=== PATIENT | female | born 1980 | race Caucasian/White ===

== ENCOUNTER 2016-08-21 02:06 | Emergency (ER) | payer MEDICAID ==
[~2016-08-21] VITALS: Ht 152.4 cm; Wt 60.9 kg
[~2016-08-21 02:06] MED LIST: CIPR500T4 PO; HYDR-3498 PO; MECL25TA2 PO; PHEN-538 PO
[2016-08-21 02:10] VITALS: Ht 152.4 cm; Wt 60.9 kg
[2016-08-21 03:45] LABS: ADD SCAN DIFF NO
[2016-08-21 03:47] LABS: BASOPHIL # 0.1 10^3/ul (0.0-0.1); BASOPHILS % 0.5 % (0.0-2.0); EOSINOPHILS # 0.3 10^3/ul (0.0-0.5); EOSINOPHILS % 2.7 % (0.0-7.0); HEMATOCRIT 32.5 % (37.0-47.0); HEMOGLOBIN 11.1 g/dl (12.0-16.0); LYMPHOCYTES # 3.2 10^3/ul (0.8-2.9); LYMPHOCYTES % 32.2 % (15.0-51.0); MEAN CORPUSCULAR HEMOGLOBIN 30.7 pg (29.0-33.0); MEAN CORPUSCULAR HGB CONC 34.2 g/dl (32.0-37.0); MEAN PLATELET VOLUME 9.9 fl (7.4-10.4); MONOCYTE # 0.6 10^3/ul (0.3-0.9); MONOCYTES % 6.3 % (0.0-11.0); NEUTROPHIL # 5.7 10^3/ul (1.6-7.5); PLATELET COUNT 298 10^3/UL (140-415); RED BLOOD COUNT 3.61 10^6/ul (4.20-5.40); RED CELL DISTRIBUTION WIDTH 13.6 % (11.5-14.5); WHITE BLOOD COUNT 9.8 10^3/ul (4.8-10.8)
[2016-08-21 03:53] LABS: ADD UMIC YES; URINE BILIRUBIN (Dip) NEGATIVE (NEGATIVE); URINE BLOOD (Dip) 3+ (NEGATIVE); URINE COLOR LT. YELLOW (YELLOW); URINE GLUCOSE (Dip) NEGATIVE (NEGATIVE); URINE KETONES (Dip) NEGATIVE (NEGATIVE); URINE LEUKOCYTE ESTERASE (Dip) NEGATIVE (NEGATIVE); URINE NITRITE (Dip) NEGATIVE (NEGATIVE); URINE TOTAL PROTEIN (Dip) 2+ (NEGATIVE); URINE UROBILINOGEN (Dip) 0.2 E.U./dL (0.1-1.0)
--- NOTE | 2016-08-21 03:57 | ERD ---
ER Documentation Chief Complaint Date/Time DATE: 08/21/16 TIME: 03:57 Chief Complaint VAG BLEEDING 15 WEEKS C/O LOWER ABD PAIN AND CRAMPING. HPI 36-year-old female presents in emergency department for complaints of pelvic pain and vaginal bleeding started tonight. Patient states that she started to have vaginal bleeding, heavy bleeding, passing of clots. Patient is approximately 15 weeks . 5 para 3 1. Patient is complaining of pelvic pain and cramping pain 4/and scale, accompanying the vaginal bleeding. Patient denies hematuria or dysuria. Patient denies any flank pain. Patient denies any nausea vomiting. Patient denies any fever or chills. ROS All systems reviewed and are negative except as per history of present illness. Medications Home Meds Active Scripts Hydrocodone Bit-Acetaminophen* ([place]*) 5-325 Mg Tab, 1 TAB PO Q6 Y for PAIN, # 20 TAB Prov:RL ARROYO NP 09/19/15 Phenazopyridine Hcl* (Pyridium*) 200 Mg Tab, 200 MG PO TID Y for URINARY PAIN, # 6 TAB Prov:RL ARROYO NP 09/19/15 Ciprofloxacin Hcl* (Ciprofloxacin Hcl*) 500 Mg Tablet, 500 MG PO BID for 10 Days , TAB Prov:RL ARROYO NP 09/19/15 Meclizine Hcl* (Antivert*) 25 Mg Tablet, 25 MG PO Q8H Y for dizziness, #14 TAB Prov:JOSE ALBERTO RIVERO PA-C 04/09/15 Hydrocodone Bit-Acetaminophen* ([place]*) 5-325 Mg Tab, 1 TAB PO Q6 Y for PAIN, # 10 TAB Prov:JOSE ALBERTO RIVERO PA-C 04/09/15 Allergies Allergies: Coded Allergies: No Known Allergy (Unverified , 04/09/15) PMhx/Soc Medical and Surgical Hx: pt denies Medical Hx, pt denies Surgical Hx History of Surgery: No Anesthesia Reaction: No Hx Neurological Disorder: No Hx Respiratory Disorders: No Hx Cardiac Disorders: No Hx Psychiatric Problems: No Hx Miscellaneous Medical Probl: No Hx Alcohol Use: No Hx Substance Use: No Hx Tobacco Use: No Smoking Status: Never smoker FmHx Family History: No coronary disease, No diabetes, No other Physical Exam Vitals Vital Signs Date Time Temp Pulse Resp B/P Pulse Ox O2 Delivery O2 Flow Rate FiO2 08/21/16 02:10 97.8 88 20 118/61 100 Physical Exam GENERAL: The patient is well developed and appropriate for usual state of health, in no apparent distress. CHEST: Clear to auscultation bilaterally. There are no rales, wheezes or rhonchi. HEART: Regular rate and rhythm. No murmurs, clicks, rubs or gallops. No S3 or S4. ABDOMEN: Soft, nontender and nondistended. Good bowel sounds. No rebound or guarding. No gross peritonitis. No gross organomegaly or masses. No Bangura sign or McBurney point tenderness. BACK: No midline or flank tenderness. EXTREMITIES: Equal pulses bilaterally. There is no peripheral clubbing, cyanosis or edema. No focal swelling or erythema. Full range of motion. Grossly neurovascularly intact. NEURO: Alert and oriented. Cranial nerves 2-12 intact. Motor strength in all 4 extremities with 5/5 strength. Sensation grossly intact. Normal speech and gait. SKIN: There is no apparent rash or petechia. The skin is warm and dry. HEMATOLOGIC AND LYMPHATIC: There is no evidence of excessive bruising or lymphedema. No gross cervical, axillary, or inguinal lymphadenopathy. Result Diagram: 08/21/16 0310 08/21/16 031 Results 24 hrs Laboratory Tests Test 08/21/16 03:10 08/21/16 03:23 White Blood Count 9.810^3/ul Red Blood Count 3.6110^6/ul Hemoglobin 11.1g/dl Hematocrit 32.5% Mean Corpuscular Volume 90.0fl Mean Corpuscular Hemoglobin 30.7pg Mean Corpuscular Hemoglobin Concent 34.2g/dl Red Cell Distribution Width 13.6% Platelet Count 65911^3/UL Mean Platelet Volume 9.9fl Neutrophils % 58.0% Lymphocytes % 32.2% Monocytes % 6.3% Eosinophils % 2.7% Basophils % 0.5% Nucleated Red Blood Cells % 0.0/100WBC Neutrophils # 5.710^3/ul Lymphocytes # 3.210^3/ul Monocytes # 0.610^3/ul Eosinophils # 0.310^3/ul Basophils # 0.110^3/ul Nucleated Red Blood Cells # 0.010^3/ul Sodium Level 138mmol/L Potassium Level 3.4mmol/L Chloride Level 104mmol/L Carbon Dioxide Level 22mmol/L Anion Gap 15 Blood Urea Nitrogen 8mg/dl Creatinine 0.37mg/dl Glucose Level 103mg/dl Calcium Level 9.1mg/dl Total Bilirubin 0.1mg/dl Direct Bilirubin 0.00mg/dl Indirect Bilirubin 0.1mg/dl Aspartate Amino Transf (AST/SGOT) 17IU/L Alanine Aminotransferase (ALT/SGPT) 23IU/L Alkaline Phosphatase 76IU/L Total Protein 7.6g/dl Albumin 3.6g/dl Globulin 4.00g/dl Albumin/Globulin Ratio 0.90 Beta HCG, Quantitative 31808.0mIU/ml Urine Color LT. YELLOW Urine Clarity CLEAR Urine pH 6.5 Urine Specific [place] 1.010 Urine Ketones NEGATIVE Urine Nitrite NEGATIVE Urine Bilirubin NEGATIVE Urine Urobilinogen 0.2 E.U./dL Urine Leukocyte Esterase NEGATIVE Urine Microscopic RBC >50/HPF Urine Microscopic WBC 0-2/HPF Urine Squamous Epithelial Cells RARE Urine Bacteria OCCASIONAL Urine Hemoglobin 3+ Urine Glucose NEGATIVE% Urine Total Protein 2+ Current Medications Medications (Trade) Dose Ordered Sig/Estephania Route PRN Reason Start Time Stop Time Status Last Admin Dose Admin Acetaminophen (Tylenol Tab) 500 mg ONCE STAT PO 08/21/16 05:20 08/21/16 05:21 DC 08/21/16 05:23 Patient was given medication for pain here in emergency department, after treatment, patient verbalized feeling much better. Patient's pain is improved. PROCEDURE: Obstetrical ultrasound. CLINICAL INDICATION: Vaginal bleeding. TECHNIQUE: Multiple sonographic images of the pelvis were obtained with transabdominal technique. Images were obtained with valentino scale and color Doppler. COMPARISON: No prior studies are available for comparison. FINDINGS: There is an intrauterine gestational sac with a pole identified. heart tones of 154 beats per minute are identified. The crown-rump length averages 6.45 cm, compatible with 12 weeks and 6 days. The mean sac diameter averages 6.07 cm. A yolk sac is not visualized. No subchorionic collection is identified. There is no pelvic free fluid. Bilateral ovaries are not visualized. There is no suspicious adnexal mass identified. IMPRESSION: Single live intrauterine with an estimated gestational age of 12 weeks and 6 days, with an ultrasound BRAYAN of 02/27/2017. Bilateral ovaries not visualized. .Lorenzo Madison MD, MD Date Time Electronically viewed and signed by .Lorenzo Madison MD, MD on 08/21/2016 04:46 .T/ CC: RL ARROYO NP Procedures/MDM Medical Decision Making: Patients vaginal bleeding is most likely symptoms of possible threatened . Patient does not show any evidence of hypovolemic shock. Patients hemoglobin and hematocrit is stable. There is low suspicion for ectopic . ZONIA results show a viable at 12 weeks BetaHCG Quantitative is appropriate for The patient is Rh+, does not need RhoGAM this time. There is no signs of symptoms of dehydration. There is low suspicion for sepsis. Patient appears well and is hemodynamically stable. Disposition: Home. Condition: Stable Prescription: Tylenol Instructions: Patient is advised to do bed rest, avoid heavy lifting, and avoid having sex until cleared by OB doctor. Patient is advised to follow up with OB doctor or here at the ER in 48 hours for reevaluation of symptoms, repeat beta HCG quantitative and ultrasound. Patient is advised that is symptoms are worst, severe bleeding, dizziness, severe abdominal pain, fever, worst signs and symptoms to return to the emergency department immediately. Departure Diagnosis: Primary Impression: Vaginal bleeding in patient at less than 20 weeks gestation Additional Impression: Intrauterine Condition: Stable Patient Instructions: Bleeding During Early Additional Instructions: Patient is advised to do bed rest, avoid heavy lifting, and avoid having sex until cleared by OB doctor. Patient is advised to follow up with OB doctor or here at the ER in 48 hours for reevaluation of symptoms, repeat beta HCG quantitative and ultrasound. Patient is advised that is symptoms are worst, severe bleeding, dizziness, severe abdominal pain, fever, worst signs and symptoms to return to the emergency department immediately. RL ARROYO NP August 21, 2016 03:57
[2016-08-21 04:02] LABS: BACTERIA,URINE OCCASIONAL; SQUAMOUS EPITHELIAL CELL,UR RARE; URINE RBCS >50 /HPF (0)
[2016-08-21 04:02] LABS: ALBUMIN 3.6 g/dl (3.3-4.9)
[2016-08-21 04:03] LABS: POTASSIUM 3.4 mmol/L (3.5-5.1)
[2016-08-21 04:05] LABS: ALBUMIN/GLOBULIN RATIO 0.9; BILIRUBIN,INDIRECT 0.1 mg/dl (0-1.1); BILIRUBIN,TOTAL 0.1 mg/dl (0.2-1.3); CREATININE 0.37 mg/dl (0.44-1.00); TOTAL PROTEIN 7.6 g/dl (6.1-8.1)
[2016-08-21 04:06] LABS: CALCIUM 9.1 mg/dl (8.4-10.2)
--- NOTE | 2016-08-21 04:47 | RADRPT ---
PROCEDURE: Obstetrical ultrasound. CLINICAL INDICATION: Vaginal bleeding. TECHNIQUE: Multiple sonographic images of the pelvis were obtained with transabdominal technique. Images were obtained with valentino scale and color Doppler. COMPARISON: No prior studies are available for comparison. FINDINGS: There is an intrauterine gestational sac with a pole identified. heart tones of 154 beat s per minute are identified. The crown-rump length averages 6.45 cm, compatible with 12 weeks and 6 days. The mean sac diameter averages 6.07 cm. A yolk sac is not visualized. No subchorionic co llection is identified. There is no pelvic free fluid. Bilateral ovaries are not visualized. There is no suspicious adnexal mass identified. IMPRESSION: Single live intrauterine with an estimated gestational age of 12 weeks and 6 days, with an ultrasound BRAYAN of 02/27/2017. Bilateral ovaries not visualized. .Lorenzo Madison MD, Date Time Electronically viewed and signed by .Lorenzo Madison MD, on 08/21/2016 04:46 .T/
[2016-08-21] MEDS ORDERED: ACETAMINOPHEN 500 MG TAB PO STA (05:20)
[2016-08-21] MEDS ORDERED: ACET500C5 PO (05:32)
[2016-08-21 05:43] VITALS: BP 109/58; PULSE 85; RESP 16; TEMP 98.7
== END 2016-08-21 05:45 | disposition home or self-care (01) ==
LOC: FTE 02:06
DX: O20.9 Hemorrhage in early pregnancy, unspecified (principal); R10.2 Pelvic and perineal pain
CPT/HCPCS: 76805; 80053; 81001; 84702; 85025; 86900; 86901; Z7610; 36415; 81003

== ENCOUNTER 2016-09-09 13:09 | Emergency (ER) | payer MEDICAID ==
[~2016-09-09] VITALS: Ht 152.4 cm; Wt 61.5 kg
[~2016-09-09 13:09] MED LIST changes: +ACET500C5 PO
[2016-09-09 13:11] VITALS: Ht 152.4 cm; Wt 61.5 kg
[2016-09-09] MEDS ORDERED: ACETAMINOPHEN 325 MG TAB PO ONE (15:00)
[2016-09-09 15:14] LABS: URINE BLOOD (Dip) POC 3+ (NEGATIVE)
--- NOTE | 2016-09-09 15:30 | RADRPT ---
PROCEDURE: Obstetrical ultrasound greater than 14 weeks CLINICAL INDICATION: Vaginal bleeding TECHNIQUE: Real time sonographic imaging of the gravid uterus is performed transabdominally and mu ltiple static valentino scale and Doppler images are submitted for review as are measurements. The image s are reviewed on the PACS. COMPARISON: Pelvic ultrasound 08/21/2016 FINDINGS: The cervical os is closed . There is a single living intrauterine gestation in variable presentation. The heart beat is e stimated at 148.2 bpm. The measurements are as follows: BPD:3.54 cm HC:12.53 cm AC:11.23 cm FL:2.04 cm Estimated gestational age is 16 weeks 4 days. The estimated date of delivery is 02/20/2017. The estimated weight is 160.8 grams. Placenta is anterior. There is no evidence of placenta previa or abruption. RPTAT: [facility] IMPRESSION: 1. Single viable intrauterine gestation estimated at 16 weeks 4 days with the estimated date of deli very 02/20/2017. .Leroy Dubon MD, Date Time Electronically viewed and signed by .Leroy Dubon MD, on 09/09/2016 15:29 .M/
[2016-09-09] MEDS ORDERED: ACET500C5 PO (15:46)
[2016-09-09] MEDS ORDERED: CEPH-443 PO (15:46)
--- NOTE | 2016-09-09 15:53 | ERD ---
ER Documentation Chief Complaint Date/Time DATE: 09/09/16 TIME: 15:50 Chief Complaint 14 weeks with spotting HPI This 36-year-old feel [place] of suprapubic cramping and some spotting since yesterday. She is approximate 14 week by dates. She has fevers, vomiting, although she does have a mild bitemporal headache. She denies urinary complaints. ROS All systems reviewed and are negative except as per history of present illness. Medications Home Meds Active Scripts Cephalexin* (Keflex*) 500 Mg Capsule, 500 MG PO QID for 5 Days, CAP Prov:CHRISTIAN JOE MD 09/09/16 Acetaminophen* (Tylophen*) 500 Mg Capsule, 1 CAP PO Q6H Y for PAIN AND OR ELEVATED TEMP, #15 CAP Prov:CHRISTIAN JOE MD 09/09/16 Acetaminophen* (Tylophen*) 500 Mg Capsule, 1 CAP PO Q6H Y for PAIN AND OR ELEVATED TEMP, #20 CAP Prov:RL ARROYO NP 08/21/16 Hydrocodone Bit-Acetaminophen* ([place]*) 5-325 Mg Tab, 1 TAB PO Q6 Y for PAIN, # 20 TAB Prov:RL ARROYO NP 09/19/15 Phenazopyridine Hcl* (Pyridium*) 200 Mg Tab, 200 MG PO TID Y for URINARY PAIN, # 6 TAB Prov:RL ARROYO NP 09/19/15 Ciprofloxacin Hcl* (Ciprofloxacin Hcl*) 500 Mg Tablet, 500 MG PO BID for 10 Days , TAB Prov:RL ARROYO NP 09/19/15 Meclizine Hcl* (Antivert*) 25 Mg Tablet, 25 MG PO Q8H Y for dizziness, #14 TAB Prov:JOSE ALBERTO RIVERO PA-C 04/09/15 Hydrocodone Bit-Acetaminophen* ([place]*) 5-325 Mg Tab, 1 TAB PO Q6 Y for PAIN, # 10 TAB Prov:JOSE ALBERTO RIVERO PA-C 04/09/15 Allergies Allergies: Coded Allergies: No Known Allergy (Unverified , 04/09/15) PMhx/Soc History of Surgery: No Anesthesia Reaction: No Hx Neurological Disorder: No Hx Respiratory Disorders: No Hx Cardiac Disorders: No Hx Psychiatric Problems: No Hx Miscellaneous Medical Probl: No Hx Alcohol Use: No Hx Substance Use: No Hx Tobacco Use: No Physical Exam Vitals Vital Signs Date Time Temp Pulse Resp B/P Pulse Ox O2 Delivery O2 Flow Rate FiO2 09/09/16 13:11 98.1 80 18 103/59 99 Physical Exam Const: [] Alert, not ill-appearing. Head: Atraumatic Eyes: Normal Conjunctiva ENT: Normal External Ears, Nose and Mouth. Neck: Full range of motion..~ No meningismus. Resp: Clear to auscultation bilaterally Cardio: Regular rate and rhythm, no murmurs Abd: Soft, minimal suprapubic tenderness. No tenderness at McBurney's point no Bangura sign and no rebound., non distended. Normal bowel sounds Skin: No petechiae or rashes Back: No midline or flank tenderness Ext: No cyanosis, or edema Neur: Awake and alert Psych: Normal Mood and Affect Results 24 hrs Laboratory Tests Test 09/09/16 15:16 Bedside Urine pH (LAB) 7.0 Bedside Urine Protein (LAB) Negative Bedside Urine Glucose (UA) Negative Bedside Urine Ketones (LAB) Negative Bedside Urine Blood 3+ Bedside Urine Nitrite (LAB) Negative Bedside Urine Leukocyte Esterase (L Trace Current Medications Medications (Trade) Dose Ordered Sig/Estephania Route PRN Reason Start Time Stop Time Status Last Admin Dose Admin Acetaminophen (Tylenol Tab) 650 mg ONCE ONCE PO 09/09/16 15:00 09/09/16 15:01 DC 09/09/16 15:16 Cephalexin (Keflex) 500 mg ONCE ONCE PO 09/09/16 16:00 09/09/16 16:01 UNV Procedures/MDM Pelvic ultrasound from 16 week normal-appearing intrauterine without evidence of adnexal masses, torsion, acute abnormalities. Urine shows trace leukocytes heat in positive hemoglobin without nitrites or glucose. Previous visit review confirms patient is Rh+. Patient's given Keflex Tylenol by mouth here. Patient presents with vaginal spotting and suprapubic pain and a normal- appearing 16 week without evidence of appendicitis, ovarian torsion, ectopic. Ultrasound shows no acute abnormalities. Patient will be treated with Keflex and Tylenol for findings of UTI. Patient is advised follow-up with primary care doctor this week or return to the ER for new or worsening symptoms. Departure Diagnosis: Primary Impression: Vaginal bleeding in patient at less than 20 weeks ges... Condition: Stable Patient Instructions: Understanding Urinary Tract Infections (UTIs), Bleeding During Early Additional Instructions: ORINA BLANQUITA POQUITO INFECCION. ULTRASONIDO normal hoy. Cheque otro vez con douglas doctor primario en el proximo [place] or regresa para mas o nueva simptomas. CHRISTIAN JOE MD September 09, 2016 15:53
[2016-09-09] MEDS ORDERED: CEPHALEXIN 500 MG CAP PO ONE (16:00)
== END 2016-09-09 18:31 | disposition left against medical advice (07) ==
LOC: FTE 13:09
DX: O20.9 Hemorrhage in early pregnancy, unspecified (principal); Z3A.16 16 weeks gestation of pregnancy
CPT/HCPCS: 76805; 81003; Z7502; Z7610

== ENCOUNTER 2017-01-18 15:05 | Outpatient (CLI) | payer MEDICAID ==
[~2017-01-18] VITALS: Ht 144.8 cm; Wt 62.6 kg
[~2017-01-18 15:05] MED LIST changes: +CEPH-443 PO
[2017-01-18] MEDS ORDERED: LACTATED RINGER'S 1,000 ML IV SCH (15:10)
--- NOTE | 2017-01-18 15:35 | RADRPT ---
PROCEDURE: US OB biophysical profile. Ultrasound cervix CLINICAL INDICATION: decreased movements, pelvic pain TECHNIQUE: Multiple sonographic images of the pelvis were obtained. In addition, ultrasound images of the cervix were obtained transvaginally. The images were reviewed on a PACS workstation. COMPARISON: 09/09/2016 FINDINGS: There is a single viable intrauterine gestation. Cardiac activity is present with 134 beats per min sina. There is a vertex presentation. The placenta is transverse left. There is no evidence of placental abruption. There is a normal amount of amniotic fluid with an FAVIOLA = 18.3 cm. The cervix measures 3.1 cm in length and is closed. Biophysical profile: movement 2/2 tone 2/2. breathing 2/2 FAVIOLA 2/2 Total 11/27 RPTAT: [facility] . IMPRESSION: Normal biophysical profile. Cervix measures 3.1 cm in length. . .Jigar Starr MD, MD Date Time Electronically viewed and signed by .Jigar Starr MD, on 01/18/2017 15:35 .S/
--- NOTE | 2017-01-18 15:36 | RADRPT ---
PROCEDURE: US OB. CLINICAL INDICATION: Size and dates TECHNIQUE: Multiple sonographic images of the pelvis and gravid uterus were obtained. The images were reviewed on a PACS workstation. COMPARISON: US 09/09/2016 FINDINGS: There is a single viable intrauterine gestation. Cardiac activity is present with 137 beats per min [place]. There is a vertex presentation. The placenta is transverse left. There is no evidence of placental abruption. There is a normal amount of amniotic fluid with an FAVIOLA = 18.3 cm. Measurements were made in order to determine age. The results are as follows: BPD =8.6 cm HC =31.3 cm AC =32.1 cm FL =6.7 cm Estimated gestational age of approximately 35 weeks and 0 days based on ultrasound measurements. Clinical age: 35 weeks and 4 days. The estimated date of delivery is 02/22/17, based on ultrasound measurements. The EFW = 2656 g, 42.7%, based on LMP age. RPTAT: [facility] IMPRESSION: Single viable intrauterine gestation of approximately 35 weeks and 0 days based on ultrasound measu rements. .Jigar Starr MD, MD Date Time Electronically viewed and signed by .Jigar Starr MD, MD on 01/18/2017 15:36 .S/
[2017-01-18 16:59] LABS: ADD UMIC YES; UR ASCORBIC ACID NEGATIVE (NEGATIVE); UR BACTERIA FEW /HPF (NONE SEEN); UR BILIRUBIN (Dip) NEGATIVE (NEGATIVE); UR BLOOD (Dip) 1+ mg/dL (NEGATIVE); UR CLARITY SLIGHTLY CLOUDY (CLEAR); UR COLOR STRAW (YELLOW); UR GLUCOSE (Dip) NEGATIVE (NEGATIVE); UR KETONES (Dip) NEGATIVE (NEGATIVE); UR LEUKOCYTE ESTERASE (Dip) 3+ Leu/ul (NEGATIVE); UR NITRITE (Dip) NEGATIVE (NEGATIVE); UR RBC 4 /HPF (0-5); UR SPECIFIC GRAVITY (Dip) 1.003 (1.003-1.030); UR SQUAMOUS EPITHELIAL CELL FEW /HPF (FEW); UR TOTAL PROTEIN (Dip) NEGATIVE (NEGATIVE); UR UROBILINOGEN (Dip) NEGATIVE (NEGATIVE)
[2017-01-18] MEDS ORDERED: TERBUTALINE 1 MG/ML INJ SC ONE (18:00)
[2017-01-18 18:07] LABS: BASOPHILS % 0.4 % (0.0-2.0); EOSINOPHILS # 0.2 10^3/ul (0.0-0.5); EOSINOPHILS % 1.8 % (0.0-7.0); HEMATOCRIT 29.9 % (37.0-47.0); HEMOGLOBIN 9.9 g/dl (12.0-16.0); LYMPHOCYTES # 2.4 10^3/ul (0.8-2.9); LYMPHOCYTES % 28.3 % (15.0-51.0); MEAN CORPUSCULAR HEMOGLOBIN 29.4 pg (29.0-33.0); MEAN CORPUSCULAR HGB CONC 33.1 g/dl (32.0-37.0); MEAN CORPUSCULAR VOLUME 88.7 fl (82.0-101.0); MEAN PLATELET VOLUME 11.4 fl (7.4-10.4); MONOCYTE # 0.6 10^3/ul (0.3-0.9); NEUTROPHIL # 5.2 10^3/ul (1.6-7.5); PLATELET COUNT 217 10^3/UL (140-415); RED BLOOD COUNT 3.37 10^6/ul (4.20-5.40); RED CELL DISTRIBUTION WIDTH 14.9 % (11.5-14.5); WHITE BLOOD COUNT 8.3 10^3/ul (4.8-10.8)
--- NOTE | 2017-01-18 18:27 | PN ---
Triage Information Date/Time Reason for visit: Uterine contractions Weeks of Gestation 35w 4d /Para Objective Heart Rate Comments reactive Exam [place]: no UCs s/p IVFs, terb Results/Medications Result Diagram: 01/18/17 1745 Results 24 hrs Laboratory Tests Test 01/18/17 15:49 01/18/17 17:45 Urine Color STRAW Urine Clarity SLIGHTLY CLOUDY A Urine pH 7.0 Urine Specific [place] 1.003 Urine Ketones NEGATIVE Urine Nitrite NEGATIVE Urine Bilirubin NEGATIVE Urine Urobilinogen NEGATIVE Urine Leukocyte Esterase 3+ H Urine Microscopic RBC 4 Urine Microscopic WBC 7 H Urine Squamous Epithelial Cells FEW Urine Bacteria FEW A Urine Hemoglobin 1+ H Urine Glucose NEGATIVE Urine Total Protein NEGATIVE White Blood Count 8.3 Red Blood Count 3.37 L Hemoglobin 9.9 L Hematocrit 29.9 L Mean Corpuscular Volume 88.7 Mean Corpuscular Hemoglobin 29.4 Mean Corpuscular Hemoglobin Concent 33.1 Red Cell Distribution Width 14.9 H Platelet Count 217 # Mean Platelet Volume 11.4 H Neutrophils % 62.0 Lymphocytes % 28.3 Monocytes % 7.0 Eosinophils % 1.8 Basophils % 0.4 Nucleated Red Blood Cells % 0.0 Neutrophils # 5.2 Lymphocytes # 2.4 Monocytes # 0.6 Eosinophils # 0.2 Basophils # 0.0 Nucleated Red Blood Cells # 0.0 Medications Current Medications Lactated Ringer's (Lr) 1,000 ml @ 125 mls/hr Q8H IV Last administered on t 17:53; Admin Dose 125 MLS/HR; Start 01/18/17 at 15:10 Imaging Results EFW 2656g, FAVIOLA 18.3cm, CL 3.1cm Disposition: Discharge CED CALIX Jan 18, 2017 18:27
[2017-01-18 19:00] VITALS: BP 106/71; PULSE 75; RESP 18; Ht 144.8 cm; Wt 62.6 kg
[2017-01-18] MEDS ORDERED: PREN-93 PO (19:04)
== END 2017-01-18 18:59 | disposition home or self-care (01) ==
LOC: L-D 15:05 → OBT 15:05
PROVIDERS: ATTEND Obstetrics & Gynecology
DX: O62.9 Abnormality of forces of labor, unspecified (principal); Z3A.35 35 weeks gestation of pregnancy
CPT/HCPCS: 36415; 76815; 76817; 76818; 81001; 85025; 96360; 96361; J7120; Z7500; G0463

== ENCOUNTER 2017-02-12 15:59 | Outpatient (CLI) | payer MEDICAID ==
[~2017-02-12] VITALS: Ht 144.8 cm; Wt 63.7 kg
[~2017-02-12 15:59] MED LIST changes: -CEPH-443 PO; -CIPR500T4 PO; -HYDR-3498 PO; -MECL25TA2 PO; -PHEN-538 PO; +PREN-93 PO
[2017-02-12 16:08] VITALS: BP 107/66; PULSE 87; RESP 18; Ht 144.8 cm; Wt 63.7 kg
[2017-02-12] MEDS ORDERED: LACTATED RINGER'S 250 ML IV ONE (16:30)
--- NOTE | 2017-02-12 17:13 | RADRPT ---
PROCEDURE: Biophysical profile CLINICAL INDICATION: distress. Decreased movements. TECHNIQUE: Color and valentino-scale ultrasound images of an intrauterine gestation were obtained. COMPARISON: January 18, 2017 FINDINGS: A single live intrauterine gestation is identified in transverse position with an estimated he art rate of 146 beats per minute. The placenta is located anteriorly and has a grade of II. The ce rvix is obscured by body shadows.. No evidence of abruption identified. FAVIOLA is 17.3 cm. movement 2/2. tone 2/2. breathing movement 2/2. Qualitative AFV 2/2 Total biophysical profile 11/27 IMPRESSION: 11/27 biophysical profile. RPTAT: [facility] .Ra Yancey MD, Date Time Electronically viewed and signed by .Ra Yancey MD, MD on 02/12/2017 17:13 .P/
--- NOTE | 2017-02-12 18:00 | TRIAGE ---
OB Triage Datetime Report Generated by CPN: 02/12/2017 17:59 Datetime: 02/12/2017 17:51 Maternal Assessment Level of Consciousness: Fully Conscious DTR's/Clonus: DTRs 1+ Headache: Denies Blurred Vision: No Breath Sounds, Left: Clear and Equal Breath Sounds, Right: Clear and Equal RUQ Epigastric Pain: Denies Facial Edema: None Labor Evaluation Frequency: X1 Monitor Mode: External Duration (sec)2399: 80 Quality: Mild Pattern: Normal: <= 5 Contractions in 10 Minutes Resting Tone [place]: Relaxed Heart Rate FHR Baseline Rate: 135 Monitor Mode: External US Variability: Moderate 6-25 bpm Accelerations: 15X15 Decelerations: None Category: Category I Pain Presence: None/Denies Pain Type: N/A Membrane Status: Intact Datetime: 02/12/2017 17:29 Maternal Assessment Level of Consciousness: Fully Conscious DTR's/Clonus: DTRs 1+ Headache: Denies Blurred Vision: No Breath Sounds, Left: Clear and Equal Breath Sounds, Right: Clear and Equal Nausea/Vomiting: Denies RUQ Epigastric Pain: Denies Facial Edema: None Labor Evaluation Frequency: X2 Monitor Mode: External Duration (sec)2399: 60-70 Quality: Mild Pattern: Normal: <= 5 Contractions in 10 Minutes Resting Tone [place]: Relaxed Heart Rate FHR Baseline Rate: 140 Monitor Mode: External US Variability: Moderate 6-25 bpm Accelerations: 15X15 Decelerations: None Category: Category I Pain Assessment Pain Scale: 3 Pain Presence: Intermittent Pain Type: Contraction Pain Location: Back Pain Goal: 3 Membrane Status: Intact Datetime: 02/12/2017 16:32 Maternal Assessment Level of Consciousness: Fully Conscious DTR's/Clonus: DTRs 1+ Headache: Denies Blurred Vision: No Respiratory Effort: Unlabored Breath Sounds, Left: Clear and Equal Breath Sounds, Right: Clear and Equal Nausea/Vomiting: Denies RUQ Epigastric Pain: Denies Facial Edema: None Labor Evaluation Frequency: X1 Monitor Mode: External Duration (sec)2399: 120 Quality: Mild Pattern: Normal: <= 5 Contractions in 10 Minutes Resting Tone [place]: Relaxed Heart Rate FHR Baseline Rate: 150 Monitor Mode: External US Variability: Moderate 6-25 bpm Accelerations: 15X15 Decelerations: None Category: Category I Pain Assessment Pain Scale: 3 Pain Presence: Intermittent Pain Type: Contraction Pain Location: Back Pain Goal: 3 Pain Relief Measures: Pain Medication Given Membrane Status: Intact Datetime: 02/12/2017 16:05 Assessment Type: Triage Maternal Assessment Level of Consciousness: Fully Conscious DTR's/Clonus: DTRs 2+; No Clonus Headache: Denies Blurred Vision: No Respiratory Effort: Unlabored; Regular Rhythm; Equal Expansion Breath Sounds, Left: Clear and Equal Breath Sounds, Right: Clear and Equal Nausea/Vomiting: Denies RUQ Epigastric Pain: Denies Lower Extremities Edema: None Degree: None Upper Extremities Edema: None Degree: None Facial Edema: None Fall Risk Assessment History of Falling: (0) No Secondary Diagnosis: (0) No Ambulatory Aid: (0) Bedrest/Nurse Assist IV Therapy: (0) No Gait: (0) Normal/Bedrest/Immobile Mental Status: (0) Oriented to Own Ability Fall Score: 0 Fall Risk Score Definition: No Risk: No action required Datetime: 02/12/2017 15:53 Time of Arrival: 02/12/2017 15:53 EGA: 39.0 Arrived By: Wheelchair Arrived From: Home Chief Complaint: PT CAME IN C/O DFM AND VAGINAL PRESSURE AND IRREGULAR UC'S Movement: Present Contractions: Irregular Rupture of Membranes: Denies Vaginal Discharge: Present Recent Sexual Intercouse: Denies Abdominal Trauma: Not Applicable Additional Patient Complaints: NONE Time Provider Notified: 02/12/2017 16:19 Provider Notified: [facility] Initial Plan: NST, BPP, VE Datetime: 01/18/2017 18:19 Labor Evaluation Frequency: IRREG Monitor Mode: External Duration (sec)2399: 50-90 Quality: Mild Resting Tone [place]: Relaxed Contraction Comments: PT DENIES UC'S AT THIS TIME Heart Rate FHR Baseline Rate: 145 Monitor Mode: External US Variability: Moderate 6-25 bpm Accelerations: 15X15 Decelerations: None Category: Category I Pain Assessment Pain Scale: 2 Pain Presence: Intermittent Pain Type: Contraction Pain Location: Abdomen; Back Pain Goal: 2 Pain Relief Measures: Comfort Measures Pain Assessment Comments: PT REPORTS FEELING MUCH BETTER Datetime: 01/18/2017 17:08 Labor Evaluation Frequency: IRREG Monitor Mode: External Duration (sec)2399: 40-90 Quality: Moderate Pattern: Normal: <= 5 Contractions in 10 Minutes Resting Tone [place]: Relaxed Heart Rate FHR Baseline Rate: 145 Monitor Mode: External US Variability: Moderate 6-25 bpm Accelerations: 15X15 Decelerations: None Category: Category I Vaginal Exam Dilatation (cms): 0.5 Effacement (%): 0 Station: -3 Exam By: OGBODU RN Cervix, Consistency: Firm Datetime: 01/18/2017 16:04 Labor Evaluation Frequency: 4-7 Monitor Mode: External Duration (sec)2399: 50-90 Quality: Moderate Pattern: Normal: <= 5 Contractions in 10 Minutes Resting Tone [place]: Relaxed Heart Rate FHR Baseline Rate: 145 Monitor Mode: External US Variability: Moderate 6-25 bpm Accelerations: 15X15 Decelerations: None Category: Category I Datetime: 01/18/2017 15:08 Time of Arrival: 01/18/2017 15:00 EGA: 35.3 Arrived By: Ambulatory Arrived From: Home Chief Complaint: UC'S SINCE 12/30 PAIN Movement: Present Contractions: Regular Time Contractions Began: 01/18/2017 04:00 Rupture of Membranes: Denies Vaginal Bleeding: None Vaginal Discharge: Denies Recent Sexual Intercouse: Denies Abdominal Trauma: Not Applicable Patient Complaints: Contractions; Back Pain Time Provider Notified: 01/18/2017 16:00 Provider Notified: DR. VARMA Initial Plan: NST, BPP, CL
--- NOTE | 2017-02-28 12:03 | QN ---
Documentation Comment 39 weeks seen at triage unit for decreased movement underwent biophysical profile report 11/27 patient discharged home with instructions for labor recommended follow-up at the clinic or return to the hospital when contractions are more regular and closer together KYLE VARMA MD Feb 28, 2017 12:03
== END 2017-02-12 17:55 | disposition home or self-care (01) ==
LOC: OBT 15:59 → L-D 16:03 → OBT 17:55
PROVIDERS: ATTEND Obstetrics & Gynecology
DX: O36.8130 Decreased fetal movements, third trimester, not applicable or unspecified (principal); Z3A.39 39 weeks gestation of pregnancy
CPT/HCPCS: 36415; 76818; 96360; J7120; Z7500; G0463

== ENCOUNTER 2017-02-20 22:52 | Outpatient (CLI) | payer MEDICAID ==
[~2017-02-20] VITALS: Ht 144.8 cm; Wt 64.2 kg
[~2017-02-20 22:52] MED LIST changes: -ACET500C5 PO
[2017-02-20 23:23] VITALS: BP 106/63; PULSE 78; RESP 18; Ht 144.8 cm; Wt 64.2 kg
--- NOTE | 2017-02-21 00:32 | RADRPT ---
PROCEDURE: OB ultrasound for biophysical profile CLINICAL INDICATION: Contractions. TECHNIQUE: Multiple sonographic images of the pelvis were obtained. Transabdominal view of the gr avid uterus are available for review. The images were reviewed on a PACS workstation. COMPARISON: 02/21/2017 FINDINGS: breathing movement = 2/2 tone = 2/2 motion = 2/2 Amniotic fluid = 2/2 FAVIOLA = 12.4 cm Single live intrauterine in cephalic presentation with cardiac activity (125 bpm). Anterior placenta, grade 2. IMPRESSION: 1. Single viable intrauterine gestation. 2. Biophysical profile = 8/8. 3. FAVIOLA = 12.4 cm. RPTAT: HTAR .Faustino Larsen MD, MD Date Time Electronically viewed and signed by .Faustino Larsen MD, on 02/21/2017 00:32 .R/
--- NOTE | 2017-02-21 03:06 | TRIAGE ---
OB Triage Datetime Report Generated by CPN: 02/21/2017 03:06 Datetime: 02/21/2017 01:10 Stage of : OB Triage Labor Evaluation Frequency: OCCASS Monitor Mode: External Duration (sec)2399: 70-200 Quality: Mild Pattern: Normal: <= 5 Contractions in 10 Minutes Resting Tone [place]: Relaxed Heart Rate FHR Baseline Rate: 130 Monitor Mode: External US Variability: Moderate 6-25 bpm Accelerations: 15X15 Decelerations: None Category: Category I Pain Assessment Pain Scale: 0 (Annotations: PT. SLEEPING WHEN DR CAME TO SEE THE PT.) Pain Location: Abdomen; Back Pain Goal: 5 Datetime: 02/21/2017 00:00 Stage of : OB Triage Labor Evaluation Frequency: 3-11 Monitor Mode: External Duration (sec)2399: 50-100 Quality: Mild Pattern: Normal: <= 5 Contractions in 10 Minutes Resting Tone [place]: Relaxed Heart Rate FHR Baseline Rate: 130 Monitor Mode: External US Variability: Moderate 6-25 bpm Accelerations: 15X15 Decelerations: None Category: Category I Pain Assessment Pain Scale: 6 Pain Presence: Intermittent Pain Type: Cramping Pain Location: Abdomen; Back Pain Goal: 5 Pain Relief Measures: Comfort Measures Datetime: 02/20/2017 23:33 Assessment Type: Triage Maternal Assessment Level of Consciousness: Fully Conscious DTR's/Clonus: DTRs 2+; No Clonus Headache: Denies Blurred Vision: No Respiratory Effort: Unlabored; Regular Rhythm; Equal Expansion Breath Sounds, Left: Clear and Equal Breath Sounds, Right: Clear and Equal Nausea/Vomiting: Denies RUQ Epigastric Pain: Denies Lower Extremities Edema: None Upper Extremities Edema: None Facial Edema: None Fall Risk Assessment History of Falling: (0) No Secondary Diagnosis: (0) No Ambulatory Aid: (0) Bedrest/Nurse Assist IV Therapy: (0) No Gait: (0) Normal/Bedrest/Immobile Mental Status: (0) Oriented to Own Ability Fall Score: 0 Fall Risk Score Definition: No Risk: No action required Datetime: 02/20/2017 23:31 Vaginal Exam Dilatation (cms): 0.5 Effacement (%): 0 Station: -3 Exam By: ZEUS Datetime: 02/20/2017 23:30 Stage of : OB Triage Temperature Route: Oral Datetime: 02/20/2017 22:53 Time of Arrival: 02/21/2017 22:53 EGA: 40.2 Arrived By: Wheelchair Arrived From: Home Chief Complaint: CONTRACTIONS Movement: Present Contractions: Irregular Rupture of Membranes: Denies Vaginal Discharge: Denies Recent Sexual Intercouse: Denies Patient Complaints: Contractions Time Provider Notified: 02/20/2017 23:44 Provider Notified: DR VERONICA Initial Plan: EFM, ASSESSMENT, BPP, Datetime: 02/12/2017 16:05 Fall Score: 0 Fall Risk Score Definition: No Risk: No action required Datetime: 02/12/2017 15:53 EGA: 39.0 Datetime: 01/18/2017 15:08 EGA: 35.3
--- NOTE | 2017-02-21 06:41 | PN ---
Triage Information Date/Time 02/20/2017 Reason for visit: Uterine contractions Weeks of Gestation 40 weeks and 1 days /Para Diabetes: none Hypertention: none Additional information 37-year-old with IUP at 40 weeks and 1 day with complaint of contractions presented to labor and delivery. She denies any leaking of fluid, vaginal bleeding or decreased movement. Denies any other complaint. Objective Vital Signs Date Time Temp Pulse Resp B/P Pulse Ox O2 Delivery O2 Flow Rate FiO2 02/20/17 23:23 98.0 78 18 106/63 Heart Rate: 130's Contractions: >10 Minutes Apart Exam General appearance: Alert and oriented 4. Patient does not appear to be in any acute distress. Abdomen: Soft, gravid, fundal height consistent with gestational age. NST: Category 1 BPP: 11/27. Results/Medications Imaging Results PROCEDURE: OB ultrasound for biophysical profile CLINICAL INDICATION: Contractions. TECHNIQUE: Multiple sonographic images of the pelvis were obtained. Transabdominal view of the gravid uterus are available for review. The images were reviewed on a PACS workstation. COMPARISON: 02/21/2017 FINDINGS: breathing movement = 2/2 tone = 2/2 motion = 2/2 Amniotic fluid = 2/2 FAVIOLA = 12.4 cm Single live intrauterine in cephalic presentation with cardiac activity (125 bpm). Anterior placenta, grade 2. IMPRESSION: 1. Single viable intrauterine gestation. 2. Biophysical profile = /8. 3. FAVIOLA = 12.4 cm. Disposition: Discharge Assessment/Plan IUP at 40 weeks and 1 day No evidence of labor. Cervix closed and long and high. No cervical change noted during observation testing reassuring. FAVIOLA 17.3 BPP: 11/27. Patient has follow-up appointment tomorrow in the office. Labor precaution for the kick count and complains with follow-up appointment within 24-48 hours with primary OB discussed with patient next Patient verbalized understanding all questions were answered. CARI VERONICA MD Feb 21, 2017 06:41
== END 2017-02-21 01:32 | disposition home or self-care (01) ==
LOC: OBT 22:52 → L-D 22:53 → NST 02-21 00:22 → L-D 02-21 00:22 → OBT 02-21 01:32
PROVIDERS: ATTEND Obstetrics & Gynecology
DX: O62.9 Abnormality of forces of labor, unspecified (principal); Z3A.40 40 weeks gestation of pregnancy
CPT/HCPCS: 76818; Z7500; G0463

== ENCOUNTER 2017-02-22 07:56 | Inpatient (IN) | payer MEDICAID ==
[~2017-02-22] VITALS: Ht 144.8 cm; Wt 63.7 kg
[2017-02-22 08:13] VITALS: Ht 144.8 cm; Wt 63.7 kg
[2017-02-22 08:15] VITALS: BP 106/73; PULSE 81; RESP 18
--- NOTE | 2017-02-22 09:18 | RADRPT ---
PROCEDURE: US OB biophysical profile. CLINICAL INDICATION: decreased movements, post dates TECHNIQUE: Multiple sonographic images of the pelvis were obtained. The images were reviewed on a PACS workstation. COMPARISON: US PELVIS 02/21/2017 FINDINGS: There is a single viable intrauterine gestation. Cardiac activity is present with 148 beats per min sina. There is a vertex presentation. The placenta is fundal. There is no evidence of placental abruption. There is a normal amount of amniotic fluid with an FAVIOLA = 18.6 cm. Biophysical profile: movement 2/2 tone 2/2. breathing 2/2 FAVIOLA 2/2 Total 11/27 RPTAT: AA . IMPRESSION: Normal biophysical profile. . .Jigar Starr MD, Date Time Electronically viewed and signed by .Jigar Starr MD, on 02/22/2017 09:18 .S/
--- NOTE | 2017-02-22 09:27 | RADRPT ---
PROCEDURE: US OB. CLINICAL INDICATION: Size and dates TECHNIQUE: Multiple sonographic images of the pelvis and gravid uterus were obtained. The images were reviewed on a PACS workstation. COMPARISON: 02/21/17 FINDINGS: There is a single viable intrauterine gestation. Cardiac activity is present with 148 beats per min sina. There is a vertex presentation. The placenta is fundal. There is no evidence for an abruption or placenta previa. Measurements were made in order to determine age. The results are as follows: BPD =8.9 cm HC =32.9 cm AC =36.9 cm FL =7.2 cm Estimated gestational age of approximately 37 weeks and 6 days based on ultrasound measurements. Clinical age: 40 weeks and 4 days. The estimated date of delivery is 03/09/17, based on ultrasound measurements. The EFW = 3644 g, 44%, based on LMP age. RPTAT: AA IMPRESSION: Single viable intrauterine gestation of approximately 37 weeks and 6 days based on ultrasound measu rements. Smaller than clinical age by 3 weeks. .Jigar Starr MD, Date Time Electronically viewed and signed by .Jigar Starr MD, on 02/22/2017 09:26 .S/
[2017-02-22] MEDS ORDERED: METHYLERGONOVINE 0.2 MG INJ IM PRN (11:00)
[2017-02-22] MEDS ORDERED: OXYTOCIN 30 UNITS/LR 500 ML IV PRN (11:00)
[2017-02-22] MEDS ORDERED: LACTATED RINGER'S 1,000 ML IV PRN (11:00)
[2017-02-22] MEDS ORDERED: IBUPROFEN 600 MG TAB PO PRN (11:00)
[2017-02-22] MEDS ORDERED: MISOPROSTOL 200 MCG TAB PR PRN (11:00)
[2017-02-22] MEDS ORDERED: BUTORPHANOL 2 MG INJ IV PRN ×2 (11:00)
[2017-02-22] MEDS ORDERED: DINOPROSTONE 10 MG VAG SUPP VAG ONE (11:00)
[2017-02-22] MEDS ORDERED: LIDOCAINE 1% (MPF) 30 ML INJ INJ PRN (11:00)
[2017-02-22] MEDS ORDERED: CARBOPROST 250 MCG INJ IM PRN (11:00)
[2017-02-22] MEDS ORDERED: OXYTOCIN 30 UNITS/LR 500 ML IV SCH ×2 (11:00)
--- NOTE | 2017-02-22 11:08 | TRIAGE ---
OB Triage Datetime Report Generated by CPN: 02/22/2017 11:08 Datetime: 02/22/2017 10:23 Labor Evaluation Frequency: IRREG Monitor Mode: External Duration (sec)2399: 60-100 Quality: Mild Pattern: Normal: <= 5 Contractions in 10 Minutes Resting Tone [place]: Relaxed Heart Rate FHR Baseline Rate: 145 Monitor Mode: External US Variability: Moderate 6-25 bpm Accelerations: 15X15 Decelerations: None Category: Category I Comments: NST REACTIVE FOR GESTATIONAL AGE Datetime: 02/22/2017 10:20 Vaginal Exam Dilatation (cms): 1.0 Effacement (%): 0 Station: -3 Exam By: ELKE RN Datetime: 02/22/2017 09:51 Time of Arrival: 02/22/2017 07:51 EGA: 40.4 Arrived By: Ambulatory Arrived From: Home Chief Complaint: CAME WITH ORDERS WITH EFW AND BPP Movement: Present Contractions: Irregular Rupture of Membranes: Denies Vaginal Bleeding: None Vaginal Discharge: Denies Recent Sexual Intercouse: Denies Abdominal Trauma: Not Applicable Patient Complaints: Contractions; Cramping; Back Pain Time Provider Notified: 02/22/2017 08:26 Provider Notified: DR. VARMA Initial Plan: SVE, NST, BPP, EFW Datetime: 02/22/2017 09:50 EGA: 37.6 Datetime: 02/22/2017 09:24 Labor Evaluation Frequency: IRREG Monitor Mode: External Duration (sec)2399: 50-180 Quality: Moderate Pattern: Normal: <= 5 Contractions in 10 Minutes Resting Tone [place]: Relaxed Heart Rate FHR Baseline Rate: 140 Monitor Mode: External US Variability: Moderate 6-25 bpm Accelerations: 15X15 Decelerations: None Category: Category I Comments: NST REACTIVE Datetime: 02/22/2017 08:15 Time of Arrival: 02/22/2017 07:51 EGA: 40.3 Arrived By: Ambulatory Arrived From: Home Chief Complaint: Post dates Movement: Present Contractions: Occasional Rupture of Membranes: Denies Vaginal Discharge: Denies Recent Sexual Intercouse: Denies Abdominal Trauma: Not Applicable Initial Plan: EFW, BPP Datetime: 02/20/2017 23:33 Fall Risk Assessment Fall Score: 0 Fall Risk Score Definition: No Risk: No action required Datetime: 02/20/2017 22:53 EGA: 40.2 Datetime: 02/12/2017 16:05 Fall Risk Assessment Fall Score: 0 Fall Risk Score Definition: No Risk: No action required Datetime: 02/12/2017 15:53 EGA: 39.0 Datetime: 01/18/2017 15:08 EGA: 35.3
[2017-02-22] MEDS: LACTATED RINGER'S 1,000 ML IV SCH ×2 (11:51→19:00)
--- NOTE | 2017-02-22 17:20 | HP ---
Date/Time of Note Date/Time of Note DATE: 02/22/17 TIME: 17:12 OB - History Hx of Present Free Text/Dictation 36 years old female EDC February 19, 2017 admitted to [facility] 40 weeks and 3 days with a early labor, examination on admission ,cervix 1 cm 0% effaced vertex at -3 station contraction every 5-10 minutes moderate quality lasting 20-30 seconds, she requires labor augmentation plan of Cervidil augmentation discussed with the patient Biophysical profile 11/27 Chief Complaint: 40 weeks 3 days early labor Estimated Due Date: Feb 19, 2017 : 5 Para: 3 Spontaneous : 1 Care: None Ultrasounds: Normal mid trimester US Obstetrical Complications: None Medical Complications: None Past Family/Social History * Past Medical, Surgical, Family and Obstetric Histories reviewed from chart. Rubella: immune RPR/VDRL: Negative GBS Status: Negative OB Admission Exam Vital Signs Vital Signs Vital Signs Date Time Temp Pulse Resp B/P Pulse Ox O2 Delivery O2 Flow Rate FiO2 02/22/17 08:15 98.2 81 18 106/73 Room Air Physical Exam HEENT: WNL Heart: Rhythm Normal Lungs: Clear, Equal Abdomen: WNL Extremities: Normal Reflexes: Normal Cervical Dilatation: 1cm Effacement: 0% Station: -2 Heart Rate: 130's Accelerations: Accelerations Present Decelerations: No Decelerations Varibility: Moderate Contractions on Admission: >10 Minutes Apart Intensity: Mild Last 72 hours Lab Results CBC & BMP 02/22/17 11:28 Liver Function Test 02/22/17 11:28 Alanine Aminotransferase (ALT/SGPT) 17 Albumin 3.5 Alkaline Phosphatase 210 H Aspartate Amino Transf (AST/SGOT) 19 Direct Bilirubin 0.00 Total Protein 7.5 KYLE VARMA MD Feb 22, 2017 17:20
[2017-02-23] MEDS ORDERED: CEFAZOLIN 2 GM/50 ML (PMX) 50 ML IV SCH
[2017-02-23] MEDS ORDERED: GLYCOPYRROLATE 0.4 MG INJ ONE (00:21)
[2017-02-23] MEDS ORDERED: ONDANSETRON 4 MG INJ ONE (00:21)
[2017-02-23] MEDS ORDERED: morphine SULFATE/PF (10 MG/10 ML) INJ ONE (00:22)
[2017-02-23] MEDS ORDERED: METOCLOPRAMIDE 10 MG INJ ONE (00:32)
[2017-02-23] MEDS ORDERED: KETOROLAC 30 MG INJ ONE (00:32)
[2017-02-23] MEDS ORDERED: EPHEDrine SULFATE 50 MG/5 ML SYG ONE (01:19)
[2017-02-23] MEDS ORDERED: morphine 4 MG/ML VIAL IV PRN (02:00)
[2017-02-23] MEDS ORDERED: KETOROLAC 30 MG INJ IV PRN (02:00)
[2017-02-23] MEDS ORDERED: DIPHENHYDRAMINE 50 MG INJ IV PRN ×2 (02:00)
[2017-02-23] MEDS ORDERED: morphine 2 MG INJ IV PRN ×2 (02:00)
[2017-02-23] MEDS ORDERED: MEPERIDINE 25 MG INJ IV PRN (02:00)
[2017-02-23] MEDS ORDERED: ONDANSETRON 4 MG INJ IV PRN ×2 (02:00)
[2017-02-23] MEDS ORDERED: morphine (1 MG/ML) 10ML SYRINGE IV PRN ×3 (02:00)
[2017-02-23] MEDS ORDERED: NALOXONE (0.4 MG/ML) INJ IV PRN (02:00)
--- NOTE | 2017-02-23 02:11 | QN ---
Documentation Comment Laborist note Pt was 6 cm so examined pt and broke her bag of water and found the baby to be in breech position, which was confirmed on US. The US done in the morning showed the baby to be vertex. Pt was consented and prepped for . She has a BTL consent dated 01/03/17 and was consented for that as well. SHIRLEY ROONEY MD Feb 23, 2017 02:11
[2017-02-23] MEDS ORDERED: LANOLIN 7 GM TUBE TOP PRN (02:30)
[2017-02-23] MEDS ORDERED: OXYTOCIN 30 UNITS/LR 500 ML IV PRN ×2 (02:30)
[2017-02-23] MEDS ORDERED: CARBOPROST 250 MCG INJ IM PRN ×2 (02:30)
[2017-02-23] MEDS ORDERED: METHYLERGONOVINE 0.2 MG INJ IM PRN ×2 (02:30)
[2017-02-23] MEDS ORDERED: MISOPROSTOL 200 MCG TAB PR PRN ×2 (02:30)
--- NOTE | 2017-02-23 02:30 | OPR ---
Operative Report Planned Procedure Procedure date Feb 23, 2017 Procedure(s) Primary section with a bilateral tubal ligation. Performed by see signature line Assisting provider: TIRSTEN MADDOX Anesthesiologist: ADELSO VARELA MD Pre-procedure diagnosis IUP at 40 weeks 4 days. BREECH. Anesthesia Type: spinal Procedure Description Under satisfactory spinal anesthesia, the patient was prepped and draped and placed in a supine position, tilted to the left. Pfannenstiel incision was made , carried through the subcutaneous tissue. Bleeders brought under control with electrocautery. Fascia incised to the length of the incision. Rectus muscles from the fascia, divided midline. Peritoneum exposed and bluntly entered. Transverse incision was made in the lower segment of the uterus. Clear amniotic fluid noted.The buttocks were in the pelvis so the feet were delivered first and then wit gentle fundal pressure the hips were delivered then the chest up to the shoulder blades and then both arms and then the head. Nasal oropharyngeal suction was performed. The cord was doubly clamped and cut after one minute. The baby was handed to the team for immediate attention. The placenta was delivered manually intact. Uterus was removed from the abdomen and then wrapped with a wet sponge and the cavity cleaned with a moist lap. Uterus was closed in 2 layers using #1 chromic in continuous fashion. A piece of surgicel was placed inside of the peritoneum along the incision.Peritoneal cavity irrigated with warm saline. A bilateral modified [place] tubal ligation was then performed using 0 plain suture and an extra stitch of the proximal tube with 2-0 silk.The uterus was replaced into the abdominal cavity and the tubes were rechecked for bleeding and were noted to be dry.Sponge, needle and instrument count reported to be correct. Abdominal peritoneum closed with 2-0 chromic continuously. Rectus muscles were approximated with the same suture. Fascia closed with 0 Vicryl, and the subcutaneous layer with 0 Plain and then skin was closed with 3.0 Monocryl in a subcuticular stitch. Steristrips with Mastasol were placed. A pressure dressing was then applied over all. The pt tolerated the procedure well. Estimated blood loss 500mL. Post-Procedure Post-procedure diagnosis Same. Findings: Baby was a viable baby boy weighing 3185 grams or 7#, 18.5" long and with Apgars of 8/9. Estimated blood loss: other (500 ml) Specimen(s): no Grafts/Implants: no Complication(s): no Pt Condition post procedure: stable Disposition: PACU Physician Certification I, the undersigned physician, hereby certify that I have discussed the procedure described in this consent form with this patient (or the patient's legal welding equipment sales representative), including: * The risk and benefits of the procedure; * Any adverse reactions that may reasonably be expected to occur; * Any alternative efficacious methods of treatment which may be medically viable ; * The potential problems that may occur during recuperation; * Potential for blood transfusion and associated risks/benefits; and * Any research or economic interest I may have regarding this treatment. I further certify that the patient/legally responsible person was encouraged to ask question and that all questions were answered. SHIRLEY ROONEY MD Feb 23, 2017 02:30
[2017-02-23 04:15] VITALS: BP 120/62; PULSE 82; RESP 19
[2017-02-23] MEDS: LACTATED RINGER'S 1,000 ML IV SCH ×3 (04:38→20:51)
[2017-02-23 05:00] VITALS: BP 101/62; PULSE 68; RESP 19
[2017-02-23] MEDS ORDERED: OXYTOCIN 30 UNITS/LR 500 ML BAG IV ONE (07:00)
[2017-02-23 08:39] VITALS: BP 101/65; PULSE 63; RESP 17
[2017-02-23] MEDS: SENNA/DOCUSATE NA (8.6MG/50MG) TAB PO SCH ×2 (09:00→20:51)
[2017-02-23 12:20] VITALS: BP 113/71; PULSE 68; RESP 18
[2017-02-23] MEDS ORDERED: FUROSEMIDE 20 MG INJ IM ONE (14:30)
[2017-02-23 15:30] VITALS: BP 92/50; PULSE 69; RESP 18
[2017-02-23 19:50] VITALS: BP 100/60; PULSE 74; RESP 20
[2017-02-24 00:30] VITALS: BP 101/60; PULSE 72; RESP 18
[2017-02-24] MEDS ORDERED: HYDROCODONE/APAP (5/325) TAB PO PRN ×2 (02:00)
[2017-02-24] MEDS: LACTATED RINGER'S 1,000 ML IV SCH (02:03)
[2017-02-24 04:20] VITALS: BP 101/67; RESP 18
[2017-02-24] MEDS: IBUPROFEN 800 MG TAB PO SCH ×3 (05:34→22:02)
[2017-02-24 08:15] VITALS: BP 106/67; PULSE 69; RESP 17
[2017-02-24] MEDS: SENNA/DOCUSATE NA (8.6MG/50MG) TAB PO SCH ×2 (09:50→20:47)
--- NOTE | 2017-02-24 12:59 | PN ---
Date/Time of Note Date/Time of Note DATE: 02/24/17 TIME: 12:56 OB Subjective Subjective Subjective February 24, 2017 Post C section day 2 Doing Well Afebrile Ambulatory Chest Clear Breasts are soft , Nipples are intact Abdomen is soft Fundus is firm Moderate amount of lochia Incision is clean ,No evidence of infection No calf tenderness No ankle edema Laboratory Tests Test 02/24/17 09:29 White Blood Count 7.610^3/ul Red Blood Count 3.1210^6/ul Hemoglobin 9.2g/dl Hematocrit 28.1% Mean Corpuscular Volume 90.1fl Mean Corpuscular Hemoglobin 29.5pg Mean Corpuscular Hemoglobin Concent 32.7g/dl Red Cell Distribution Width 15.0% Platelet Count 86951^3/UL Mean Platelet Volume 11.3fl Neutrophils % 70.7% Lymphocytes % 22.2% Monocytes % 5.8% Eosinophils % 0.4% Basophils % 0.5% Nucleated Red Blood Cells % 0.0/100WBC Neutrophils # 5.410^3/ul Lymphocytes # 1.710^3/ul Monocytes # 0.410^3/ul Eosinophils # 0.010^3/ul Basophils # 0.010^3/ul Nucleated Red Blood Cells # 0.010^3/ul Current Medications Medications (Trade) Dose Ordered Sig/Estephania Route PRN Reason Start Time Stop Time Status Last Admin Dose Admin Lactated Ringer's (Lr) 1,000 ml @ 125 mls/hr Q8H IV 02/22/17 10:56 02/23/17 02:08 DC 02/22/17 19:00 Dinoprostone (Cervidil Vaginal Supp) 10 mg ONCE ONCE VAG 02/22/17 11:00 02/22/17 11:01 DC 02/22/17 11:39 Butorphanol Tartrate (Stadol) 1 mg Q2H PRN IV PAIN 02/22/17 11:00 02/23/17 02:08 DC Butorphanol Tartrate (Stadol) 2 mg Q2H PRN IV PAIN 02/22/17 11:00 02/23/17 02:08 DC 02/22/17 20:10 Lidocaine 30 ml 30 ml ONCE PRN INJ EPISIOTOMY/TEARING 02/22/17 11:00 02/23/17 02:08 DC Oxytocin/Lactated Ringer's 500 ml @ 125 mls/hr ONCE -MAY REPEAT X1 IV 02/22/17 11:00 02/23/17 02:08 DC Oxytocin/Lactated Ringer's 500 ml @ 125 mls/hr ONCE IV 02/22/17 11:00 02/23/17 02:08 DC Ibuprofen 600 mg 600 mg ONCE PRN PO Mild Pain (Pain Score 1-3) 02/22/17 11:00 02/23/17 02:08 DC Lactated Ringer's 1,000 ml @ 2,000 mls/hr Q30M PRN IV PRE-EPIDURAL BOLUS 02/22/17 11:00 02/23/17 02:08 DC 02/22/17 23:52 Oxytocin/Lactated Ringer's 500 ml @ 0 mls/hr ONCE PRN IV For Hemorrhage Management 02/22/17 11:00 02/23/17 02:08 DC Methylergonovine Maleate (Methergine) 0.2 mg ONCE PRN IM VAGINAL BLEEDING 02/22/17 11:00 02/23/17 02:08 DC Carboprost Tromethamine (Hemabate) 250 mcg ONCE PRN IM VAGINAL BLEEDING 02/22/17 11:00 02/23/17 02:08 DC Misoprostol 1000 mcg 1,000 mcg ONCE PRN [place] VAGINAL BLEEDING 02/22/17 11:00 02/23/17 02:08 DC Cefazolin Sodium/ Dextrose 50 ml @ 100 mls/hr ONCE IV 02/23/17 00:00 02/23/17 02:08 DC Oxytocin/Lactated Ringer's 500 ml @ 0 mls/hr ONCE PRN IV For Hemorrhage Management 02/23/17 00:00 02/23/17 02:08 DC Methylergonovine Maleate (Methergine) 0.2 mg ONCE PRN IM VAGINAL BLEEDING 02/23/17 00:00 02/23/17 02:08 DC Carboprost Tromethamine (Hemabate) 250 mcg ONCE PRN IM VAGINAL BLEEDING 02/23/17 00:00 02/23/17 02:08 DC Misoprostol (Cytotec) 1,000 mcg ONCE PRN [place] VAGINAL BLEEDING 02/23/17 00:00 02/23/17 02:08 DC Glycopyrrolate (Robinul) 0.4 mg STK-MED ONCE .ROUTE 02/23/17 00:21 02/23/17 00:22 DC Ondansetron HCl (Zofran Inj) 4 mg STK-MED ONCE .ROUTE 02/23/17 00:21 02/23/17 00:22 DC Morphine Sulfate (Duramorph) 10 mg STK-MED ONCE .ROUTE 02/23/17 00:22 02/23/17 00:23 DC Metoclopramide HCl (Reglan) 10 mg STK-MED ONCE .ROUTE 02/23/17 00:32 02/23/17 00:33 DC Ketorolac Tromethamine (Toradol) 30 mg STK-MED ONCE .ROUTE 02/23/17 00:32 02/23/17 00:33 DC Ephedrine Sulfate 50 mg STK-MED ONCE .ROUTE 02/23/17 01:19 02/23/17 01:20 DC Naloxone HCl (Narcan) 0.1 mg Q2M PRN IV FOR RESP RATE 8 OR LESS 02/23/17 02:00 02/24/17 01:59 DC Ketorolac Tromethamine (Toradol) 30 mg Q6H PRN IV PAIN 02/23/17 02:00 02/24/17 01:59 DC 02/23/17 03:58 Morphine Sulfate (morphine) 3 mg Q2H PRN IV BREAKTHROUGH PAIN 02/23/17 02:00 02/24/17 01:59 DC Morphine Sulfate (morphine) 2 mg Q3H PRN IV PAIN LEVEL 1-5 02/23/17 02:00 02/24/17 01:59 DC Morphine Sulfate (morphine) 4 mg Q3H PRN IV PAIN LEVEL 6-10 02/23/17 02:00 02/24/17 01:59 DC Diphenhydramine HCl (Benadryl) 25 mg Q6H PRN IV ITCHING 02/23/17 02:00 02/24/17 01:59 DC Ondansetron HCl (Zofran Inj) 4 mg Q6H PRN IV NAUSEA AND/OR VOMITING 02/23/17 02:00 02/24/17 01:59 DC 02/23/17 05:24 Morphine Sulfate (morphine (REC)) 2 mg PACU ORDER PRN IV MILD PAIN LEVEL 1-3 02/23/17 02:00 02/23/17 06:00 DC Morphine Sulfate (morphine (REC)) 4 mg PACU ORDER PRN IV MODERATE PAIN LEVEL 4-6 02/23/17 02:00 02/23/17 06:00 DC Morphine Sulfate (morphine (REC)) 6 mg PACU ORDER PRN IV SEVERE PAIN LEVEL 7-10 02/23/17 02:00 02/23/17 06:00 DC Ondansetron HCl (Zofran Inj) 4 mg PACU ORDER PRN IV NAUSEA AND/OR VOMITING 02/23/17 02:00 02/23/17 06:00 DC Meperidine HCl (Demerol) 25 mg PACU ORDER PRN IV POST-OP RIGORS 02/23/17 02:00 02/23/17 02:08 DC Diphenhydramine HCl 25 mg 25 mg PACU ORDER PRN IV PRURITUS 02/23/17 02:00 02/23/17 06:00 DC Lactated Ringer's (Lr) 1,000 ml @ 125 mls/hr Q8H IV 02/23/17 02:03 02/24/17 10:11 DC 02/23/17 20:51 Acetaminophen/ Hydrocodone Bitart ([place] (5/325)) 1 tab Q4H PRN PO PAIN LEVEL 4-6 02/24/17 02:00 Acetaminophen/ Hydrocodone Bitart ([place] (5/325)) 2 tab Q4H PRN PO PAIN LEVEL 7-10 02/24/17 02:00 Ibuprofen (Motrin) 800 mg Q8 PO 02/24/17 06:00 02/24/17 05:34 Simethicone (Mylicon) 160 mg Q8H PRN PO DISTENSION/GAS/BLOATING 02/23/17 02:30 Senna/Docusate Sodium (Senokot-S) 1 tab BID PO 02/23/17 09:00 02/24/17 09:50 Lanolin ([id number]) 1 applic BEDSIDE MEDICATION PRN TOP BEDSIDE FOR OFELIA TO NIPPLES 02/23/17 02:30 02/23/17 05:27 Diphtheria/ Tetanus/Acell Pertussis 0.5 ml 0.5 ml ONCE ONCE IM* 02/26/17 09:00 02/26/17 09:01 Oxytocin/Lactated Ringer's 500 ml @ 0 mls/hr ONCE PRN IV For Hemorrhage Management 02/23/17 02:30 Methylergonovine Maleate (Methergine) 0.2 mg ONCE PRN IM VAGINAL BLEEDING 02/23/17 02:30 Carboprost Tromethamine (Hemabate) 250 mcg ONCE PRN IM VAGINAL BLEEDING 02/23/17 02:30 Misoprostol (Cytotec) 1,000 mcg ONCE PRN [place] VAGINAL BLEEDING 02/23/17 02:30 Furosemide (Lasix) 20 mg ONCE ONCE IM 02/23/17 14:30 02/23/17 18:11 DC New born is doing well, Breast feeding AVA HUNTER MD Feb 24, 2017 12:59
--- NOTE | 2017-02-24 12:59 | PN ---
Date/Time of Note Date/Time of Note DATE: 02/24/17 TIME: 12:56 OB Subjective Subjective Subjective February 24, 2017 Post C section day 2 Doing Well Afebrile Ambulatory Chest Clear Breasts are soft , Nipples are intact Abdomen is soft Fundus is firm Moderate amount of lochia Incision is clean ,No evidence of infection No calf tenderness No ankle edema Laboratory Tests Test 02/24/17 09:29 White Blood Count 7.610^3/ul Red Blood Count 3.1210^6/ul Hemoglobin 9.2g/dl Hematocrit 28.1% Mean Corpuscular Volume 90.1fl Mean Corpuscular Hemoglobin 29.5pg Mean Corpuscular Hemoglobin Concent 32.7g/dl Red Cell Distribution Width 15.0% Platelet Count 85224^3/UL Mean Platelet Volume 11.3fl Neutrophils % 70.7% Lymphocytes % 22.2% Monocytes % 5.8% Eosinophils % 0.4% Basophils % 0.5% Nucleated Red Blood Cells % 0.0/100WBC Neutrophils # 5.410^3/ul Lymphocytes # 1.710^3/ul Monocytes # 0.410^3/ul Eosinophils # 0.010^3/ul Basophils # 0.010^3/ul Nucleated Red Blood Cells # 0.010^3/ul Current Medications Medications (Trade) Dose Ordered Sig/Estephania Route PRN Reason Start Time Stop Time Status Last Admin Dose Admin Lactated Ringer's (Lr) 1,000 ml @ 125 mls/hr Q8H IV 02/22/17 10:56 02/23/17 02:08 DC 02/22/17 19:00 Dinoprostone (Cervidil Vaginal Supp) 10 mg ONCE ONCE VAG 02/22/17 11:00 02/22/17 11:01 DC 02/22/17 11:39 Butorphanol Tartrate (Stadol) 1 mg Q2H PRN IV PAIN 02/22/17 11:00 02/23/17 02:08 DC Butorphanol Tartrate (Stadol) 2 mg Q2H PRN IV PAIN 02/22/17 11:00 02/23/17 02:08 DC 02/22/17 20:10 Lidocaine 30 ml 30 ml ONCE PRN INJ EPISIOTOMY/TEARING 02/22/17 11:00 02/23/17 02:08 DC Oxytocin/Lactated Ringer's 500 ml @ 125 mls/hr ONCE -MAY REPEAT X1 IV 02/22/17 11:00 02/23/17 02:08 DC Oxytocin/Lactated Ringer's 500 ml @ 125 mls/hr ONCE IV 02/22/17 11:00 02/23/17 02:08 DC Ibuprofen 600 mg 600 mg ONCE PRN PO Mild Pain (Pain Score 1-3) 02/22/17 11:00 02/23/17 02:08 DC Lactated Ringer's 1,000 ml @ 2,000 mls/hr Q30M PRN IV PRE-EPIDURAL BOLUS 02/22/17 11:00 02/23/17 02:08 DC 02/22/17 23:52 Oxytocin/Lactated Ringer's 500 ml @ 0 mls/hr ONCE PRN IV For Hemorrhage Management 02/22/17 11:00 02/23/17 02:08 DC Methylergonovine Maleate (Methergine) 0.2 mg ONCE PRN IM VAGINAL BLEEDING 02/22/17 11:00 02/23/17 02:08 DC Carboprost Tromethamine (Hemabate) 250 mcg ONCE PRN IM VAGINAL BLEEDING 02/22/17 11:00 02/23/17 02:08 DC Misoprostol 1000 mcg 1,000 mcg ONCE PRN [place] VAGINAL BLEEDING 02/22/17 11:00 02/23/17 02:08 DC Cefazolin Sodium/ Dextrose 50 ml @ 100 mls/hr ONCE IV 02/23/17 00:00 02/23/17 02:08 DC Oxytocin/Lactated Ringer's 500 ml @ 0 mls/hr ONCE PRN IV For Hemorrhage Management 02/23/17 00:00 02/23/17 02:08 DC Methylergonovine Maleate (Methergine) 0.2 mg ONCE PRN IM VAGINAL BLEEDING 02/23/17 00:00 02/23/17 02:08 DC Carboprost Tromethamine (Hemabate) 250 mcg ONCE PRN IM VAGINAL BLEEDING 02/23/17 00:00 02/23/17 02:08 DC Misoprostol (Cytotec) 1,000 mcg ONCE PRN [place] VAGINAL BLEEDING 02/23/17 00:00 02/23/17 02:08 DC Glycopyrrolate (Robinul) 0.4 mg STK-MED ONCE .ROUTE 02/23/17 00:21 02/23/17 00:22 DC Ondansetron HCl (Zofran Inj) 4 mg STK-MED ONCE .ROUTE 02/23/17 00:21 02/23/17 00:22 DC Morphine Sulfate (Duramorph) 10 mg STK-MED ONCE .ROUTE 02/23/17 00:22 02/23/17 00:23 DC Metoclopramide HCl (Reglan) 10 mg STK-MED ONCE .ROUTE 02/23/17 00:32 02/23/17 00:33 DC Ketorolac Tromethamine (Toradol) 30 mg STK-MED ONCE .ROUTE 02/23/17 00:32 02/23/17 00:33 DC Ephedrine Sulfate 50 mg STK-MED ONCE .ROUTE 02/23/17 01:19 02/23/17 01:20 DC Naloxone HCl (Narcan) 0.1 mg Q2M PRN IV FOR RESP RATE 8 OR LESS 02/23/17 02:00 02/24/17 01:59 DC Ketorolac Tromethamine (Toradol) 30 mg Q6H PRN IV PAIN 02/23/17 02:00 02/24/17 01:59 DC 02/23/17 03:58 Morphine Sulfate (morphine) 3 mg Q2H PRN IV BREAKTHROUGH PAIN 02/23/17 02:00 02/24/17 01:59 DC Morphine Sulfate (morphine) 2 mg Q3H PRN IV PAIN LEVEL 1-5 02/23/17 02:00 02/24/17 01:59 DC Morphine Sulfate (morphine) 4 mg Q3H PRN IV PAIN LEVEL 6-10 02/23/17 02:00 02/24/17 01:59 DC Diphenhydramine HCl (Benadryl) 25 mg Q6H PRN IV ITCHING 02/23/17 02:00 02/24/17 01:59 DC Ondansetron HCl (Zofran Inj) 4 mg Q6H PRN IV NAUSEA AND/OR VOMITING 02/23/17 02:00 02/24/17 01:59 DC 02/23/17 05:24 Morphine Sulfate (morphine (REC)) 2 mg PACU ORDER PRN IV MILD PAIN LEVEL 1-3 02/23/17 02:00 02/23/17 06:00 DC Morphine Sulfate (morphine (REC)) 4 mg PACU ORDER PRN IV MODERATE PAIN LEVEL 4-6 02/23/17 02:00 02/23/17 06:00 DC Morphine Sulfate (morphine (REC)) 6 mg PACU ORDER PRN IV SEVERE PAIN LEVEL 7-10 02/23/17 02:00 02/23/17 06:00 DC Ondansetron HCl (Zofran Inj) 4 mg PACU ORDER PRN IV NAUSEA AND/OR VOMITING 02/23/17 02:00 02/23/17 06:00 DC Meperidine HCl (Demerol) 25 mg PACU ORDER PRN IV POST-OP RIGORS 02/23/17 02:00 02/23/17 02:08 DC Diphenhydramine HCl 25 mg 25 mg PACU ORDER PRN IV PRURITUS 02/23/17 02:00 02/23/17 06:00 DC Lactated Ringer's (Lr) 1,000 ml @ 125 mls/hr Q8H IV 02/23/17 02:03 02/24/17 10:11 DC 02/23/17 20:51 Acetaminophen/ Hydrocodone Bitart ([place] (5/325)) 1 tab Q4H PRN PO PAIN LEVEL 4-6 02/24/17 02:00 Acetaminophen/ Hydrocodone Bitart ([place] (5/325)) 2 tab Q4H PRN PO PAIN LEVEL 7-10 02/24/17 02:00 Ibuprofen (Motrin) 800 mg Q8 PO 02/24/17 06:00 02/24/17 05:34 Simethicone (Mylicon) 160 mg Q8H PRN PO DISTENSION/GAS/BLOATING 02/23/17 02:30 Senna/Docusate Sodium (Senokot-S) 1 tab BID PO 02/23/17 09:00 02/24/17 09:50 Lanolin ([id number]) 1 applic BEDSIDE MEDICATION PRN TOP BEDSIDE FOR OFELIA TO NIPPLES 02/23/17 02:30 02/23/17 05:27 Diphtheria/ Tetanus/Acell Pertussis 0.5 ml 0.5 ml ONCE ONCE IM* 02/26/17 09:00 02/26/17 09:01 Oxytocin/Lactated Ringer's 500 ml @ 0 mls/hr ONCE PRN IV For Hemorrhage Management 02/23/17 02:30 Methylergonovine Maleate (Methergine) 0.2 mg ONCE PRN IM VAGINAL BLEEDING 02/23/17 02:30 Carboprost Tromethamine (Hemabate) 250 mcg ONCE PRN IM VAGINAL BLEEDING 02/23/17 02:30 Misoprostol (Cytotec) 1,000 mcg ONCE PRN [place] VAGINAL BLEEDING 02/23/17 02:30 Furosemide (Lasix) 20 mg ONCE ONCE IM 02/23/17 14:30 02/23/17 18:11 DC New born is doing well, Breast feeding AVA HUNTER MD Feb 24, 2017 12:59
[2017-02-24 16:45] VITALS: BP 117/72; PULSE 71; RESP 19
--- NOTE | 2017-02-24 17:54 | PN ---
Date/Time of Note Date/Time of Note DATE: 02/24/17 TIME: 17:49 Assessment/Plan VTE Prophylaxis VTE Prophylaxis Intervention: ambulation Lines/Catheters IV Catheter Type (from Nrsg): Peripheral IV Subjective 24 Hr Interval Summary Free Text/Dictation 02/23/2017 0716 A 37 female s/p duramorph with spinal pod # 1 is doung well, no pain or headache or itching or SOB.back is clean woth no pain. care per surgery Exam/Review of Systems Vital Signs Vitals Vital Signs Date Time Temp Pulse Resp B/P Pulse Ox O2 Delivery O2 Flow Rate FiO2 02/24/17 16:45 98.7 71 19 117/72 Room Air 02/23/17 20:57 97 21 Intake and Output 02/23/17 02/23/17 02/24/17 15:00 23:00 07:00 Intake Total 2500 ml 1815 ml Output Total 751 ml 810 ml 1250 ml Balance 1749 ml 1005 ml -1250 ml Results Result Diagram: 02/24/17 0929 02/22/17 1128 Results 24 hrs Laboratory Tests Test 02/24/17 09:29 White Blood Count 7.6 Red Blood Count 3.12 L Hemoglobin 9.2 L Hematocrit 28.1 L Mean Corpuscular Volume 90.1 Mean Corpuscular Hemoglobin 29.5 Mean Corpuscular Hemoglobin Concent 32.7 Red Cell Distribution Width 15.0 H Platelet Count 200 Mean Platelet Volume 11.3 H Neutrophils % 70.7 Lymphocytes % 22.2 Monocytes % 5.8 Eosinophils % 0.4 Basophils % 0.5 Nucleated Red Blood Cells % 0.0 Neutrophils # 5.4 Lymphocytes # 1.7 Monocytes # 0.4 Eosinophils # 0.0 Basophils # 0.0 Nucleated Red Blood Cells # 0.0 Medications Medications Current Medications Acetaminophen/ Hydrocodone Bitart ([place] (5/325)) 1 tab Q4H PRN PO PAIN LEVEL 4 -6; Start 02/24/17 at 02:00 Acetaminophen/ Hydrocodone Bitart ([place] (5/325)) 2 tab Q4H PRN PO PAIN LEVEL 7 -10; Start 02/24/17 at 02:00 Ibuprofen (Motrin) 800 mg Q8 PO Last administered on 02/24/17t 14:35; Admin Dose 800 MG; Start 11/5/17 at 06:00 Simethicone (Mylicon) 160 mg Q8H PRN PO DISTENSION/GAS/BLOATING; Start at 02:30 Senna/Docusate Sodium (Senokot-S) 1 tab BID PO Last administered on 02/24/17t 09:50; Admin Dose 1 TAB; Start 02/23/17 at 09:00 Diphtheria/ Tetanus/Acell Pertussis 0.5 ml 0.5 ml ONCE ONCE IM* ; Start at 09:00; Stop 02/26/17 at 09:01 Oxytocin/Lactated Ringer's 500 ml @ 0 mls/hr ONCE PRN IV For Hemorrhage Management; Start 02/23/17 at 02:30 Methylergonovine Maleate (Methergine) 0.2 mg ONCE PRN IM VAGINAL BLEEDING; Start 02/23/17 at 02:30 Carboprost Tromethamine (Hemabate) 250 mcg ONCE PRN IM VAGINAL BLEEDING; Start 02/23/17 at 02:30 Misoprostol (Cytotec) 1,000 mcg ONCE PRN [place] VAGINAL BLEEDING; Start 02/23/17 at 02:30 ADELSO VARELA MD Feb 24, 2017 17:54
--- NOTE | 2017-02-24 17:54 | PN ---
Date/Time of Note Date/Time of Note DATE: 02/24/17 TIME: 17:49 Assessment/Plan VTE Prophylaxis VTE Prophylaxis Intervention: ambulation Lines/Catheters IV Catheter Type (from Nrsg): Peripheral IV Subjective 24 Hr Interval Summary Free Text/Dictation 02/23/2017 0716 A 37 female s/p duramorph with spinal pod # 1 is doung well, no pain or headache or itching or SOB.back is clean woth no pain. care per surgery Exam/Review of Systems Vital Signs Vitals Vital Signs Date Time Temp Pulse Resp B/P Pulse Ox O2 Delivery O2 Flow Rate FiO2 02/24/17 16:45 98.7 71 19 117/72 Room Air 02/23/17 20:57 97 21 Intake and Output 02/23/17 02/23/17 02/24/17 15:00 23:00 07:00 Intake Total 2500 ml 1815 ml Output Total 751 ml 810 ml 1250 ml Balance 1749 ml 1005 ml -1250 ml Results Result Diagram: 02/24/17 0929 02/22/17 1128 Results 24 hrs Laboratory Tests Test 02/24/17 09:29 White Blood Count 7.6 Red Blood Count 3.12 L Hemoglobin 9.2 L Hematocrit 28.1 L Mean Corpuscular Volume 90.1 Mean Corpuscular Hemoglobin 29.5 Mean Corpuscular Hemoglobin Concent 32.7 Red Cell Distribution Width 15.0 H Platelet Count 200 Mean Platelet Volume 11.3 H Neutrophils % 70.7 Lymphocytes % 22.2 Monocytes % 5.8 Eosinophils % 0.4 Basophils % 0.5 Nucleated Red Blood Cells % 0.0 Neutrophils # 5.4 Lymphocytes # 1.7 Monocytes # 0.4 Eosinophils # 0.0 Basophils # 0.0 Nucleated Red Blood Cells # 0.0 Medications Medications Current Medications Acetaminophen/ Hydrocodone Bitart ([place] (5/325)) 1 tab Q4H PRN PO PAIN LEVEL 4 -6; Start 02/24/17 at 02:00 Acetaminophen/ Hydrocodone Bitart ([place] (5/325)) 2 tab Q4H PRN PO PAIN LEVEL 7 -10; Start 02/24/17 at 02:00 Ibuprofen (Motrin) 800 mg Q8 PO Last administered on 02/24/17t 14:35; Admin Dose 800 MG; Start 11/5/17 at 06:00 Simethicone (Mylicon) 160 mg Q8H PRN PO DISTENSION/GAS/BLOATING; Start at 02:30 Senna/Docusate Sodium (Senokot-S) 1 tab BID PO Last administered on 02/24/17t 09:50; Admin Dose 1 TAB; Start 02/23/17 at 09:00 Diphtheria/ Tetanus/Acell Pertussis 0.5 ml 0.5 ml ONCE ONCE IM* ; Start at 09:00; Stop 02/26/17 at 09:01 Oxytocin/Lactated Ringer's 500 ml @ 0 mls/hr ONCE PRN IV For Hemorrhage Management; Start 02/23/17 at 02:30 Methylergonovine Maleate (Methergine) 0.2 mg ONCE PRN IM VAGINAL BLEEDING; Start 02/23/17 at 02:30 Carboprost Tromethamine (Hemabate) 250 mcg ONCE PRN IM VAGINAL BLEEDING; Start 02/23/17 at 02:30 Misoprostol (Cytotec) 1,000 mcg ONCE PRN [place] VAGINAL BLEEDING; Start 02/23/17 at 02:30 ADELSO VARELA MD Feb 24, 2017 17:54
--- NOTE | 2017-02-24 17:54 | PN ---
Date/Time of Note Date/Time of Note DATE: 02/24/17 TIME: 17:49 Assessment/Plan VTE Prophylaxis VTE Prophylaxis Intervention: ambulation Lines/Catheters IV Catheter Type (from Nrsg): Peripheral IV Subjective 24 Hr Interval Summary Free Text/Dictation 02/23/2017 0716 A 37 female s/p duramorph with spinal pod # 1 is doung well, no pain or headache or itching or SOB.back is clean woth no pain. care per surgery Exam/Review of Systems Vital Signs Vitals Vital Signs Date Time Temp Pulse Resp B/P Pulse Ox O2 Delivery O2 Flow Rate FiO2 02/24/17 16:45 98.7 71 19 117/72 Room Air 02/23/17 20:57 97 21 Intake and Output 02/23/17 02/23/17 02/24/17 15:00 23:00 07:00 Intake Total 2500 ml 1815 ml Output Total 751 ml 810 ml 1250 ml Balance 1749 ml 1005 ml -1250 ml Results Result Diagram: 02/24/17 0929 02/22/17 1128 Results 24 hrs Laboratory Tests Test 02/24/17 09:29 White Blood Count 7.6 Red Blood Count 3.12 L Hemoglobin 9.2 L Hematocrit 28.1 L Mean Corpuscular Volume 90.1 Mean Corpuscular Hemoglobin 29.5 Mean Corpuscular Hemoglobin Concent 32.7 Red Cell Distribution Width 15.0 H Platelet Count 200 Mean Platelet Volume 11.3 H Neutrophils % 70.7 Lymphocytes % 22.2 Monocytes % 5.8 Eosinophils % 0.4 Basophils % 0.5 Nucleated Red Blood Cells % 0.0 Neutrophils # 5.4 Lymphocytes # 1.7 Monocytes # 0.4 Eosinophils # 0.0 Basophils # 0.0 Nucleated Red Blood Cells # 0.0 Medications Medications Current Medications Acetaminophen/ Hydrocodone Bitart ([place] (5/325)) 1 tab Q4H PRN PO PAIN LEVEL 4 -6; Start 02/24/17 at 02:00 Acetaminophen/ Hydrocodone Bitart ([place] (5/325)) 2 tab Q4H PRN PO PAIN LEVEL 7 -10; Start 02/24/17 at 02:00 Ibuprofen (Motrin) 800 mg Q8 PO Last administered on 02/24/17t 14:35; Admin Dose 800 MG; Start 11/5/17 at 06:00 Simethicone (Mylicon) 160 mg Q8H PRN PO DISTENSION/GAS/BLOATING; Start at 02:30 Senna/Docusate Sodium (Senokot-S) 1 tab BID PO Last administered on 02/24/17t 09:50; Admin Dose 1 TAB; Start 02/23/17 at 09:00 Diphtheria/ Tetanus/Acell Pertussis 0.5 ml 0.5 ml ONCE ONCE IM* ; Start at 09:00; Stop 02/26/17 at 09:01 Oxytocin/Lactated Ringer's 500 ml @ 0 mls/hr ONCE PRN IV For Hemorrhage Management; Start 02/23/17 at 02:30 Methylergonovine Maleate (Methergine) 0.2 mg ONCE PRN IM VAGINAL BLEEDING; Start 02/23/17 at 02:30 Carboprost Tromethamine (Hemabate) 250 mcg ONCE PRN IM VAGINAL BLEEDING; Start 02/23/17 at 02:30 Misoprostol (Cytotec) 1,000 mcg ONCE PRN [place] VAGINAL BLEEDING; Start 02/23/17 at 02:30 ADELSO VARELA MD Feb 24, 2017 17:54
[2017-02-24 19:30] VITALS: BP 107/71; PULSE 68; RESP 18
[2017-02-25 04:05] VITALS: BP 109/81; PULSE 60; RESP 18
[2017-02-25] MEDS: IBUPROFEN 800 MG TAB PO SCH ×3 (05:33→22:00)
[2017-02-25 08:30] VITALS: BP 112/78; PULSE 70; RESP 18
[2017-02-25] MEDS: SENNA/DOCUSATE NA (8.6MG/50MG) TAB PO SCH ×2 (09:00→21:00)
--- NOTE | 2017-02-25 22:05 | QN ---
Documentation Comment POD #2 Pt is doing well and is in good spirits. Tolerating a regular diet and passing flatus. The baby is but she doesn't have much milk yet and she says the baby has lost a little too much weight so she was encouraged to breastfeed q 2 hours, i.e. more regularly. T=98.1 BP 112/78 Incision is clean, dry and intact. Abdomen soft, non-distended. Lochia minimal. Ext: NT, no edema, non-tender. P: Continue care and plan d/c tomorrow as long as the baby is ready. SHIRLEY ROONEY MD Feb 25, 2017 22:05
[2017-02-26 04:00] VITALS: BP 108/69; PULSE 62; RESP 18
[2017-02-26] MEDS: IBUPROFEN 800 MG TAB PO SCH (05:51)
[2017-02-26] MEDS ORDERED: IBUP800T25 PO (08:17)
--- NOTE | 2017-02-26 08:17 | PD.PPDC ---
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
--- NOTE | 2017-02-26 08:17 | PD.PPDC ---
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
--- NOTE | 2017-02-26 08:17 | PD.PPDC ---
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
--- NOTE | 2017-02-26 08:20 | DS ---
Date/Time of Note Date/Time of Note DATE: 02/26/17 TIME: 08:18 Obstetrical Discharge Record Final Diagnosis Final Diagnosis: Term delivered Other Final Diagnosis B[facility]CH Section Section: Primary Primary Indication B[facility]. IN LABOR. Complications Other ([facility]) Augmentation: Yes Induction: No Condition on Discharge Physical Assessment Last Vitals: T=98.1 BP 108/69 Voiding: Yes Bowel Movement: Yes Breast: Soft, non-tender Fundus: Firm Abdomen and Incision: Clean, dry and intact. Calf Tenderness: No Patient Condition: Good SHIRLEY ROONEY MD Feb 26, 2017 08:20
[2017-02-26] MEDS: SENNA/DOCUSATE NA (8.6MG/50MG) TAB PO SCH (09:00)
[2017-02-26] MEDS ORDERED: DIPHTH/TET/ACEL PERTUSS (ADULT) 0.5 ML VIAL IM* ONE (09:00)
== END 2017-02-26 14:49 | disposition home or self-care (01) | DRG 766 ==
LOC: OBT 07:56 → L-D 07:56 → OBT 10:39 → L-D 10:49 → PP1 02-23 03:54
PROVIDERS: ADMIT Obstetrics & Gynecology; ATTEND Obstetrics & Gynecology
PROC: 0UB70ZZ Excision of Bilateral Fallopian Tubes, Open Approach (ICD-10-PCS; 2017-02-23)
PROC: 10D00Z1 Extraction of Products of Conception, Low, Open Approach (ICD-10-PCS; principal; 2017-02-23 00:15)
DX: O32.1XX0 Maternal care for breech presentation, not applicable or unspecified (principal); Z30.2 Encounter for sterilization; Z37.0 Single live birth; Z3A.40 40 weeks gestation of pregnancy
CPT/HCPCS: 76815; 76818; 80053; 85025; 85610; 85730; 86592; 86900; 86901; 87340; 88302; 94760; 99464; J1940; G0463; J0595; J0690; J1885; J2274; J2405; J2590; J2765; J7120